=== PATIENT | male | born 1935 | race Caucasian/White ===

== ENCOUNTER 2017-06-23 10:08 | Outpatient (CLI) | payer MEDICARE ==
[2017-06-23] MEDS ORDERED: Gadobenate Dimeglumine 529 MG/1 ML (20ML VIAL) ONE (10:15)
== END 2017-06-23 10:09 | disposition home or self-care (01) ==
LOC: BICMRI 10:08
PROVIDERS: ATTEND Neurological Surgery
DX: M54.16 Radiculopathy, lumbar region (principal); M48.061 Spinal stenosis, lumbar region without neurogenic claudication; M99.83 Other biomechanical lesions of lumbar region; Z98.1 Arthrodesis status
CPT/HCPCS: 72158; A9579

== ENCOUNTER 2018-05-12 01:13 | Inpatient (IN) | payer MEDICARE ==
[2018-05-12 02:19] LABS: Band 2 % (5-11); Hemoglobin 13.9 g/dL (14.0-18.0); Lymphocytes 4 % (21-51); MDiff Complete? YES; Mean Corpuscular HGB CONC 32.9 g/dL (32.0-36.0); Mean Corpuscular Volume 91.3 fL (78.0-98.0); Mean Platelet Volume 8.2 fL (7.4-10.4); Monocytes 10 % (0-10); Neutrophil 84 % (42-75); Platelet Count 182 thou/uL (130-400); Platelet Morphology Comment Appears Adequate; RBC Distribution Width 12.9 % (11.5-14.5); Red Blood Cell (RBC) Count 4.64 mill/uL (4.70-6.10); White Blood Cell (WBC) Count 20.5 thou/uL (4.8-10.8)
[2018-05-12 02:25] LABS: ALT (SGPT) 20 U/L (8-55); AST (SGOT) 17 U/L (5-34); Alkaline Phosphatase 58 U/L (40-150); Anion Gap 18 mmol/L (10-20); BUN (Urea Nitrogen) 20 mg/dL (8.4-25.7); Bilirubin, Total 1.3 mg/dL (0.2-1.2); Calc. Creatinine Clearance 0 mL/min (70-130); Calcium 9.4 mg/dL (7.8-10.44); Carbon Dioxide 22 mmol/L (23-31); Chloride 98 mmol/L (98-107); Estimated GFR-MDRD 68; Globulin 2.7 g/dL (2.4-3.5); Glucose 225 mg/dL (83-110); Protein, Total 6.7 g/dL (5.8-8.1); Sodium 134 mmol/L (136-145)
[2018-05-12] MEDS ORDERED: Fentanyl 100 MCG/2 ML VIAL ONE ×2 (02:32→09:42)
[2018-05-12] MEDS ORDERED: Piperacillin/Tazobactam 3.375 GM VIAL ONE (02:50)
[2018-05-12] MEDS ORDERED: Adacel (T-DAP) 0.5 ML SYRINGE ONE (03:06)
[2018-05-12] MEDS ORDERED: Dextrose 50% Abboject 50 ML SYRINGE SLOW IVP PRN (04:03)
[2018-05-12] MEDS ORDERED: Morphine 4 MG/ML VIAL SLOW IVP PRN ×2 (04:03)
[2018-05-12] MEDS ORDERED: Ondansetron PF 4 MG/2 ML Vial IVP PRN (04:03)
[2018-05-12] MEDS ORDERED: Dextrose 5% in Water 1,000 ML IV PRN (04:03)
[2018-05-12] MEDS: Sodium Chloride 0.9% 1,000 ML IV SCH ×2 (05:03→13:22)
[2018-05-12] MEDS: Ketorolac Tromethamine 30 MG/ML VIAL IVP SCH ×4 (05:04→17:40)
[2018-05-12] MEDS: Acetaminophen 1,000 MG in Premix Bag 1 BAG IVPB SCH ×5 (05:04→23:44)
[2018-05-12 05:20] VITALS: BMI 32.5
--- NOTE | 2018-05-12 05:48 | HP ---
ATTENDING TRAUMA SURGEON: Jaquan Masters MD HISTORY OF PRESENT ILLNESS: This is an 83-year-old gentleman, who has had recurrent falls, first fall was May 03. The patient had stepped off a curb and landed face first injuring his nose and broken teeth. The patient also had a fall in February 2018 and was not evaluated, but has had some neck pain since. The patient states he tripped and fell at approximately 10:30 last night landing on his right hip with no loss of consciousness. It was reported as a witnessed fall. The patient uses a walker at home and was using his walker. The patient recently diagnosed with possible strep and/or possible staph infection from the patient's wound to his nose. The patient was placed on antibiotics Tuesday for infection. The patient has had nausea and vomiting for the last 2 days since placed on antibiotics. The patient denies having chest pain, palpitations, or dizziness before the fall. The patient has been n.p.o. since 8 p.m. The patient ate crackers. The patient was also seen by his primary care physician 2 days ago as his face was swollen and red. States that it is improving. The patient with last bowel movement 5 days ago and states that his abdomen has been distended, but seems to be a little better today. Said that it was hard yesterday and distended. The patient does report passing gas. PAST MEDICAL HISTORY: Coronary artery disease, heart murmur, diabetes, hyperlipidemia, chronic back and joint pain, cardiac stent placement. PAST SURGICAL HISTORY: Back surgery and stent x1 to heart. ALLERGIES: NO KNOWN DRUG ALLERGIES. CURRENT MEDICATIONS: 1. Metformin 1000 mg twice a day. 2. Flomax 0.4 mg once a day. 3. Pravastatin 40 mg daily. 4. Finasteride 5 mg once a day. 5. Amlodipine 5 mg twice a day. 6. Metoprolol 25 mg twice a day. 7. Gentamicin ointment 1% topical twice a day. 8. Novolin 70/30, 40 units 2 times a day. PHYSICAL EXAMINATION: VITAL SIGNS: Temperature 98.2, SpO2 of 92% on 2 L, pulse 87, blood pressure 154 /72. CONSTITUTIONAL: The patient appears in moderate amount of pain. The patient is oriented to person and event. HEENT: Head is atraumatic and normocephalic. The patient with healing abrasion to the bridge of nose. No drainage noted. NECK: Trachea is midline. No JVD present. Normal range of motion of neck. RESPIRATORY: Mild rhonchi noted. Equal chest expansion, no respiratory distress. CARDIOVASCULAR: Regular rate and rhythm. A 3/6 systolic heart murmur. ABDOMEN: Soft, slightly distended, and has diffuse tenderness. Active bowel sounds. No peritoneal signs. EXTREMITIES: The patient moves all extremities. The patient with right external rotation. Positive distal pulses. Pedal pulse to right lower extremity is weaker than left. NEUROLOGICAL: The patient is oriented to person and place. No focal deficits. LABORATORY DATA: WBC 20.5, RBC 4.64, hemoglobin 13.9, hematocrit 42.2, platelets 182, neutrophils 84. Sodium 134, CO2 of 22, anion gap 18, BUN 20, creatinine 1.04, estimated GFR 68, glucose 222, calcium 9.4, total bilirubin 1.3, AST 17, ALT 20, alkaline phos 58. Troponin 0.018. BNP 142.6. Repeat troponin 0.021. TSH 2.5272. UA pending DIAGNOSTICS: Brain CT unremarkable, official read is pending. Femur x-ray, femur fracture. Official reads pending. IMPRESSION: 1. Ground-level fall. 2. Right femur fracture. 3. Leukocytosis. PLAN: We will admit the patient to surgical ortho floor. Place the patient n.p.o. pending surgery sometime today. We will place the patient on maintenance IV fluids. Empiric antibiotics for leukocytosis. Pending cultures. UA pending. This patient will be discussed with the attending trauma surgeon. Job ID: [id number] MTDD
[2018-05-12] MEDS: Piperacillin/Tazobactam 3.375 GM in Sodium Chloride 0.9% 100 ML IVPB SCH ×4 (06:04→23:47)
[2018-05-12] MEDS: Insulin Regular 300 UNITS/3 ML VIAL SC PRN (06:41)
--- NOTE | 2018-05-12 07:28 | CT ---
CT OF THE BRAIN WITHOUT CONTRAST: Date: 05/12/18 INDICATION: History of fall with concern for head injury. COMPARISON: None. FINDINGS: There is moderate generalized cerebral and cerebellar atrophy. There is mild chronic small vessel whi te matter ischemic change. The septum pellucidum and third ventricle are midline. Skull and extracran ial soft tissues are within normal limits. IMPRESSION: 1. No acute intracranial abnormality. 2. Moderate cerebral and cerebellar atrophy. 3. Mild chronic small vessel white matter ischemic change. POS: [facility]
--- NOTE | 2018-05-12 07:34 | CT ---
CT CERVICAL SPINE WITHOUT CONTRAST: Date: 05/12/18 INDICATION: Fall with concern for neck injury. COMPARISON: None. FINDINGS: No acute fracture or subluxation is evident. There is advanced multilevel disc degenerative disease and prominent multilevel disc osteophyte compl exes. Most prominent levels include C3-4, C5-6, and C6-7 where there is presence of some osseous cent ral canal narrowing. Craniocervical junction appears within normal limits. There is mild periarticular soft tissue calcification around the axial spine. Prevertebral soft tissu es are normal appearing. IMPRESSION: 1. No acute fracture or subluxation is evident. 2. Severe multilevel spondylosis of cervical spine with multilevel prominent disc osteophyte complex es causing some osseous central canal narrowing. Nonemergent follow-up MRI of cervical spine may be h elpful. POS: [facility]
[2018-05-12] MEDS ORDERED: CEFAZOLIN 2 GM in Premix Bag 1 BAG IVPB SCH (08:00)
[2018-05-12] MEDS ORDERED: CEFAZOLIN/Water 2 GM/20 ML SYRINGE SLOW IVP SCH ×2 (08:00→11:15)
[2018-05-12] MEDS ORDERED: Vancomycin HCl 1.5 GM in Sodium Chloride 0.9% 250 ML 300 ML IVPB SCH (08:00)
--- NOTE | 2018-05-12 08:16 | CON ---
DATE OF CONSULTATION: HISTORY OF PRESENT ILLNESS: We were asked by Emergency Room Trauma to see the patient. The patient had a ground level fall last night. Family and are at the bedside. The patient is little somnolent, but arouses and answer some simple questions. Apparently, he fell a week ago, landed on his face. Few days later, he had a bunch of facial swelling and edema was seen by his PCP, put on some antibiotics because he did have some white discharge from his eyes. Antibiotics made him quite ill with nausea, vomiting, and then last night, he had a ground level fall. As for his face and discharge, and family states this is getting better. He had some back surgery a few years ago by Dr. Gonzalez and many years ago. The patient states over the past year or so, his gait has been more of a quick shuffling type of gait. He has been using a walker for stability and a cane. Subsequently in the last 3 to 4 months, he has had 3 falls including this one. states there was no loss of consciousness with any of these falls. PAST MEDICAL HISTORY: CAD, murmur, diabetes, hyperlipidemia, back pain, and arthritic pain. PAST SURGICAL HISTORY: Back surgery x2, cardiac stent. ALLERGIES: NONE. MEDICATIONS: 1. Metformin. 2. Tamsulosin. 3. Pravastatin. 4. Finasteride. 5. Amlodipine. 6. Metoprolol. 7. Gentamicin. 8. Novolin. FAMILY HISTORY: Noncontributory to this event. REVIEW OF SYSTEMS: The patient denies chest pain. No shortness of breath. I move him around for the physical exam for obviously some right hip pain, but little somnolent, otherwise I can arouse him to answer some simple questions. His review of systems is negative. PHYSICAL EXAMINATION: GENERAL: Well-nourished, well-developed male, resting in bed, again a little somnolent, but will arouse and answer some questions. Most of the history is garnered from the family, who is at the bedside. HEENT: He does have some bruising and a bit of swelling to the face. Otherwise, face is symmetric. His smile is also symmetric. NECK: Supple. Trachea midline. LUNGS: Respiratory, no distress. EXTREMITIES: Upper extremities; he has some bruises to his forearms, but otherwise are equal size, shape, symmetry, normal bulk and tone. Lower extremities; right leg is shortened and outward rotated. He has a little bit of redness to the right hip area, but not bad. He has equal pulses sensations of bilateral lower extremities. LABORATORY DATA: CBC: WBCs 20.5, hemoglobin 13.9, hematocrit 42.4, and platelets 182. Chemistries: Sodium is a little low at 134, glucose 255. IMAGING STUDIES: The patient has an obvious right-sided hip fracture. ASSESSMENT: Right hip fracture. PLAN: The patient is being managed by Trauma. We will see if he is able to go to surgery. I did discuss surgery, risks, and benefits with the family and answered their questions. They are amenable to go forth with surgery as long as he is medically cleared. We will keep him n.p.o. Lab work looked okay and is waiting for trauma's authorization to go. We will get him posted. Plan for surgery will be an intramedullary screw stabilization device and I have explained this to the family. They also know he will probably need some case management after the fact for recovery purposes. Questions have been answered. Job ID: [id number]
--- NOTE | 2018-05-12 08:38 | RAD ---
SINGLE VIEW OF THE CHEST: COMPARISON: 12/19/2017. HISTORY: Preoperative radiograph. FINDINGS: Single view of the chest shows a normal sized cardiomediastinal silhouette. There is no evidence of c onsolidation, mass, or pleural effusion. Degenerative changes are seen in the spine. IMPRESSION: No evidence of acute cardiopulmonary disease. POS: [facility]
--- NOTE | 2018-05-12 08:48 | RAD ---
TWO VIEWS RIGHT FEMUR: DATE: 05/12/2018. PROVIDED CLINICAL HISTORY: Fracture. FINDINGS: There is an obliquely oriented subtrochanteric right proximal femoral fracture with posterior displac ement of the distal fracture fragment by about shafts width. No additional fracture is evident. Right hip joint space appears preserved. Vascular calcifications are seen. IMPRESSION: Displaced subtrochanteric right proximal femoral fracture. POS: [facility]
[2018-05-12 08:50] LABS: CKMB 4.8 ng/mL (0-6.6)
--- NOTE | 2018-05-12 08:50 | RAD ---
TWO VIEWS RIGHT KNEE: Comparison: None. History: Multiple falls at home with right femur and knee pain. FINDINGS: Two views of the right knee shows no evidence of fracture or dislocation. Mild to moderate tricompart mental osteophyte formation is seen consistent with osteoarthritis. IMPRESSION: Moderate right knee osteoarthritis without acute osseous abnormality. POS: [facility]
[2018-05-12] MEDS ORDERED: Vancomycin HCl 1 GM in Premix Bag 1 BAG IVPB SCH (09:00)
[2018-05-12] MEDS: Famotidine/PF 20 mg/2ml Vial SLOW IVP SCH ×2 (09:03→20:50)
--- NOTE | 2018-05-12 09:08 | RAD ---
TWO VIEWS RIGHT HIP: DATE: 05/12/2018. PROVIDED CLINICAL HISTORY: Hip fracture. FINDINGS: There is a displaced subtrochanteric fracture of the right proximal femur with posterior displacement of the distal fragment. Alignment at the right hip joint appears preserved. There is a displaced subtrochanteric fracture of the right proximal femur with posterior displacement of the distal fragment. Alignment at the right hip joint appears preserved. Alignment at the right hip joint appears preserved. IMPRESSION: Displaced subtrochanteric right proximal femoral fracture. POS: [facility]
[2018-05-12 09:46] LABS: ALT (SGPT) 23 U/L (8-55); AST (SGOT) 23 U/L (5-34); Albumin 3.7 g/dL (3.4-4.8); Alkaline Phosphatase 54 U/L (40-150); Bilirubin, Direct 0.7 mg/dL (0.1-0.3); Bilirubin, Total 1.4 mg/dL (0.2-1.2); Protein, Total 6.3 g/dL (5.8-8.1)
--- NOTE | 2018-05-12 11:10 | ULT ---
RIGHT UPPER QUADRANT ULTRASOUND: HISTORY: Right upper quadrant pain. FINDINGS: Real-time imaging of the right upper quadrant demonstrates sludge within the gallbladder. No definit e stones. The gallbladder wall is in the 2-3 mm range. The common duct is in the 6 mm range. The l iver parenchyma is of increased echogenicity. The pancreas is totally obscured. The right kidney is not obstructed. IMPRESSION: 1. Gallbladder sludge. No definite stones. The common duct is upper limits of normal. 2. Fatty change of the liver. POS: [facility]
[2018-05-12 12:12] LABS: Actual Bicarbonate (HCO3a) 25.1 mEq/L (22-28); Base Excess (BEa) -2.7 mEq/L (-2.0 to +3.0); CO2 Tension 57.2 mmHg (35.0-45.0); Calcium, Ionized 1.15 mmol/L (1.12-1.30); Carboxyhemoglobin (COHb) 1.7 gm% (0.0-3.0); Hemoglobin (Hb) 13.2 g/dL (14.0-18.0); O2 Tension (PaO2) 62.4 mmHg (> 60.0); Potassium - ABG Lab 3.63 mmol/L (3.70-5.30); pH, Arterial 7.26 (7.35-7.45)
--- NOTE | 2018-05-12 12:58 | RAD ---
TWO VIEWS OF THE RIGHT HIP: COMPARISON: 05/12/2018 at 2:00 a.m. HISTORY: Right hip fracture status post ORIF. FINDINGS/IMPRESSION: Multiple limited intraoperative fluoroscopic views of the right hip were submitted for interpretation . An intramedullary arina has been placed in the interval. The hardware spans a fracture of the proxi mal diaphysis of the femur. No perihardware lucency is present. POS: [facility]
[2018-05-12 13:21] LABS: Actual Bicarbonate (HCO3a) 24.2 mEq/L (22-28); Base Excess (BEa) -2.3 mEq/L (-2.0 to +3.0); CO2 Tension 48.4 mmHg (35.0-45.0); Calcium, Ionized 1.15 mmol/L (1.12-1.30); Carboxyhemoglobin (COHb) 1.8 gm% (0.0-3.0); Hemoglobin (Hb) 13.1 g/dL (14.0-18.0); O2 Tension (PaO2) 62.2 mmHg (> 60.0); Potassium - ABG Lab 3.99 mmol/L (3.70-5.30); pH, Arterial 7.32 (7.35-7.45)
--- NOTE | 2018-05-12 13:44 | RAD ---
AP VIEW CHEST: HISTORY: Trauma. Postoperative radiograph. FINDINGS: AP view chest was obtained on 05/12/2018. Comparison is made to a previous exam from early in the day on 05/12/2018. EKG leads seen over the chest. Calcification of the aorta is seen. No evidence of acute intrathorac ic abnormality is seen. Cardiomegaly noted. Old healed right-sided rib fracture is seen. IMPRESSION: 1. Cardiomegaly and pulmonary vascular congestion. 2. Old healed right-sided rib fractures. POS: [facility]
[2018-05-12] MEDS ORDERED: ePHEDrine 50 MG/ML VIAL ONE (13:53)
[2018-05-12] MEDS ORDERED: Lidocaine 1% PF 5 ML VIAL ONE (13:53)
[2018-05-12] MEDS ORDERED: Glycopyrrolate 0.2 MG/ML 5 ML SYRINGE ONE (13:53)
[2018-05-12] MEDS ORDERED: Rocuronium Bromide 10 MG/ML (10ML VIAL) ONE (13:53)
[2018-05-12] MEDS ORDERED: PROPOFOL 200 MG/20 ML VIAL ONE (13:53)
[2018-05-12] MEDS ORDERED: Ondansetron PF 4 MG/2 ML Vial ONE (13:53)
--- NOTE | 2018-05-12 16:09 | OP ---
DATE OF PROCEDURE: 05/12/2018 OPERATION PERFORMED: Right femur intramedullary nail. PREOPERATIVE DIAGNOSIS: Right subtrochanteric femur fracture. POSTOPERATIVE DIAGNOSIS: Right subtrochanteric femur fracture. COMPLICATIONS: None. ESTIMATED BLOOD LOSS: 150 mL. HAND TRIMMER: Jacquelyn Sibley PA-C. IMPLANTS: Synthes trochanteric intramedullary nail with Crosslock screws and helical blade. INDICATIONS: Mr. Islas is an 83-year-old male, who has fallen. He fractured the right femur. He was indicated for intramedullary nail fixation to restore anatomic alignment and promote healing. Risks have been reviewed in detail. He elected to proceed with the operation. DESCRIPTION OF OPERATION: Mr. Islas was identified in the preoperative holding area. His correct extremity was marked. He was carried to the operating room. He was positioned supine. General anesthesia was induced. A multidisciplinary time-out was performed. The right lower extremity was prepped and draped in sterile fashion. We began the procedure with incision over the greater trochanter. We dissected down through the subcutaneous tissues to the tip of the trochanter. A guidewire was inserted. At this point, we overdrilled the guidewire. We then placed a ball-tipped guidewire distally to the knee. We checked this on intraoperative x-ray. We measured appropriate length for nail. We then reamed up to a size 12 reamer. Next, we impacted our intramedullary nail. We watched this again with fluoroscopy. Finally, we placed a helical blade in the center position of the femoral head. This was checked on orthogonal planes. We then put this into a dynamic position. Finally, we placed a distal Crosslock screw using perfect absentee-shawnee technique. At this point, we thoroughly irrigated with copious lavage. Wounds were closed appropriately in layers. The patient was taken to the recovery room. Job ID: [id number]
[2018-05-12] MEDS: CEFAZOLIN 2 GM in Premix Bag 1 BAG IVPB SCH (16:22)
[2018-05-12] MEDS: Ibuprofen 600 MG TAB PO SCH (20:50)
[2018-05-12] MEDS: Senokot S 8.6-50 MG TAB PO SCH (20:50)
--- NOTE | 2018-05-12 21:44 | PRG ---
DATE OF SERVICE: 05/12/2018 SUBJECTIVE: I saw Mr. Islas at 8:30 a.m. this morning. This was prior to his trip to the operating room. The patient was admitted following a ground level fall with a right hip fracture. He was also noted to have elevated white blood cell count. The patient was also complaining of abdominal distention and frequent flatulence over the last several days. He denies any nausea, vomiting, fever, or chills. I did review the history and physical as recorded by the trauma nurse practitioner, Ms. Rachel Lopez and I agree with her findings and plan. Additionally, I obtained an ultrasound of the abdomen, which was unremarkable for any gallstones. In fact, the gallbladder ultrasound reveals minimum pericholecystic fluid with no gallbladder wall thickening. The common bile duct was normal in diameter for the patient's age. OBJECTIVE: HEART: At the time of my evaluation, his heart reveals regular rate and rhythm. No murmurs or gallops auscultated. LUNGS: Clear to auscultation bilaterally. Breathing, regular and nonlabored. ABDOMEN: Soft and moderately distended, but nontender to palpation. Liver and spleen are nonpalpable below costal margin. NEUROLOGIC: Reveals no focal deficits present. EXTREMITIES: Reveal 2 +radial and pedal pulses bilaterally. No ankle edema is present. LABORATORY FINDINGS: Included CBC earlier with 20,500 white blood cells, hemoglobin and hematocrit 13.9 and 42.4 respectively. Platelet count is 182,000. Metabolic profile; sodium 134, potassium is 4.0, chloride is 98, bicarb 22, BUN 20, creatinine is 1.04, glucose is 225. BNP was noted at 110. Total bilirubin was 1.3. AST and ALT were normal at 17 and 20 respectively. The patient was certainly hemodynamically stable and was cleared to proceed with surgical intervention. I re-evaluated the patient postoperatively. At this time, he was requiring noninvasive mechanical ventilator support in the postanesthesia care unit. He was awake and alert at that time, reported adequate pain control. I therefore placed him for observation in the intermediate care unit. A few hours after surgery, the patient was awake and alert, off BiPAP, on 2 L by nasal cannula oxygen. Oxygen saturation was noted at 98%. The patient reported adequate pain control. He denied any nausea, vomiting, chest pain, abdominal pain, or dyspnea. I am therefore initiating clear liquid diet tonight. If tolerated, we will advance diet in the morning. There is no further indication for workup of any biliary disease at this time. We will initiate physical and occupational therapy as the patient tolerates especially when he gets transferred to general surgical floor in the morning. Job ID: [id number] MTDD
[2018-05-12 23:22] LABS: Bilirubin Negative (Negative); Blood, Urine Negative (Negative); Clarity CLEAR (Clear); Glucose, Urine (Dipstick) Negative (Negative); Leukocyte Negative (Negative); Nitrite Negative (Negative); Protein, Urine (Dipstick) 30 mg/dL (Neg-Trace); Specific Gravity, Urine 1.026 (1.002-1.036); Urobilinogen 0.2 mg/dL (0.2-1.0); pH, Urine 5.5 (5.0-9.0)
[2018-05-12 23:25] LABS: Bacteria/HPF None Seen HPF (None Seen); Hyaline Casts/LPF 0-3 HYALINE CAST LPF (0-3 Hyaline); Pathc Cast-AUWi Flag 0.58 (0-2.49); RBC/HPF 0-3 HPF (0-3); Squamous Epithelial 0-3 HPF (0-3); WBC/HPF 0-3 HPF (0-3)
[2018-05-12 23:26] LABS: Urine Culture Reflex No No
[2018-05-13] MEDS: CEFAZOLIN 2 GM in Premix Bag 1 BAG IVPB SCH (00:30)
[2018-05-13 01:24] LABS: Actual Bicarbonate (HCO3a) 24.4 mEq/L (22-28); Base Excess (BEa) -1.4 mEq/L (-2.0 to +3.0); CO2 Tension 45.1 mmHg (35.0-45.0); Calcium, Ionized 1.08 mmol/L (1.12-1.30); Carboxyhemoglobin (COHb) 1.8 gm% (0.0-3.0); Hemoglobin (Hb) 12.2 g/dL (14.0-18.0); Potassium - ABG Lab 3.87 mmol/L (3.70-5.30); pH, Arterial 7.35 (7.35-7.45)
[2018-05-13 01:34] LABS: #Lymphocytes 1.3 thou/uL (1.20-3.40); #Monocytes 1.5 thou/uL (0.11-0.59); #Neutrophils 12.9 thou/uL (1.40-6.50); %Basophils 0.1 % (0.0-1.0); %Eosinophils 0.1 % (0.0-10.0); %Lymphocytes 8.1 % (21.0-51.0); %Monocytes 9.5 % (0.0-10.0); %Neutrophils 82.2 % (42.0-75.0); Hemoglobin 11.5 g/dL (14.0-18.0); Mean Corpuscular HGB CONC 32.7 g/dL (32.0-36.0); Mean Corpuscular Hemoglobin 30.2 pg (27.0-31.0); Mean Corpuscular Volume 92.3 fL (78.0-98.0); Mean Platelet Volume 8.2 fL (7.4-10.4); Platelet Count 142 thou/uL (130-400); RBC Distribution Width 12.8 % (11.5-14.5); Red Blood Cell (RBC) Count 3.81 mill/uL (4.70-6.10); White Blood Cell (WBC) Count 15.7 thou/uL (4.8-10.8)
[2018-05-13 01:50] LABS: ALV-art Gradient 115.385 (0-20); O2 Tension (PaO2) 56.4 mmHg (> 60.0); Puncture Site LRA
[2018-05-13 02:05] LABS: ALT (SGPT) 37 U/L (8-55); AST (SGOT) 31 U/L (5-34); Albumin 3.3 g/dL (3.4-4.8); Alkaline Phosphatase 51 U/L (40-150); Anion Gap 16 mmol/L (10-20); BUN (Urea Nitrogen) 29 mg/dL (8.4-25.7); Bilirubin, Total 0.8 mg/dL (0.2-1.2); Calc. Creatinine Clearance 47 mL/min (70-130); Calcium 8.5 mg/dL (7.8-10.44); Carbon Dioxide 22 mmol/L (23-31); Chloride 99 mmol/L (98-107); Estimated GFR-MDRD 37; Globulin 2.6 g/dL (2.4-3.5); Glucose 194 mg/dL (83-110); Magnesium 1.4 mg/dL (1.6-2.6); Phosphorus 3.2 mg/dL (2.3-4.7); Protein, Total 5.9 g/dL (5.8-8.1); Sodium 133 mmol/L (136-145)
[2018-05-13] MEDS ORDERED: Sodium Chloride 0.9% 500 ML IV ONE (02:30)
[2018-05-13] MEDS ORDERED: Magnesium Sulfate 3 GM in Sodium Chloride 0.9% 100 ML IVPB SCH ×2 (02:30→19:30)
[2018-05-13 02:42] LABS: Actual Bicarbonate (HCO3a) 23.7 mEq/L (22-28); Base Excess (BEa) -1.6 mEq/L (-2.0 to +3.0); CO2 Tension 42.3 mmHg (35.0-45.0); Calcium, Ionized 1.09 mmol/L (1.12-1.30); Carboxyhemoglobin (COHb) 1.4 gm% (0.0-3.0); Hemoglobin (Hb) 11.9 g/dL (14.0-18.0); O2 Tension (PaO2) 63.8 mmHg (> 60.0); Potassium - ABG Lab 3.78 mmol/L (3.70-5.30); pH, Arterial 7.37 (7.35-7.45)
[2018-05-13 02:43] LABS: ALV-art Gradient 168.525 (0-20); Puncture Site LRA
[2018-05-13] MEDS: Ibuprofen 600 MG TAB PO SCH ×2 (05:23→15:05)
[2018-05-13] MEDS: Piperacillin/Tazobactam 3.375 GM in Sodium Chloride 0.9% 100 ML IVPB SCH ×4 (05:23→23:15)
[2018-05-13] MEDS: Insulin Regular 300 UNITS/3 ML VIAL SC PRN ×3 (06:26→16:40)
--- NOTE | 2018-05-13 08:10 | RAD ---
SINGLE VIEW OF THE CHEST: COMPARISON: 05/12/2018. HISTORY: Tachypnea. FINDINGS: A single view of the chest shows an enlarged but stable cardiomediastinal silhouette with atheroscler otic calcifications in the aorta. There is no evidence of consolidation, mass, or pleural effusion. IMPRESSION: Stable cardiomegaly. POS: [facility]
[2018-05-13] MEDS ORDERED: Non-Formulary Item 1 EACH (Cholecalciferol (Vitamin D3) [Vitamin D3] 1,000 UNIT) PO SCH (09:00)
[2018-05-13] MEDS: Tamsulosin HCl 0.4 MG CAP PO SCH (09:08)
[2018-05-13] MEDS: Finasteride 5 MG TAB PO SCH (09:08)
[2018-05-13] MEDS: Metoprolol Tartrate 25 MG TAB PO SCH ×2 (09:08→19:59)
[2018-05-13] MEDS: Senokot S 8.6-50 MG TAB PO SCH ×2 (09:09→19:57)
[2018-05-13] MEDS: Polyethylene Glycol 3350 17 GM Packet PO SCH (09:09)
[2018-05-13] MEDS: Ondansetron ODT 4 MG TAB PO PRN ×2 (09:18→16:17)
[2018-05-13] MEDS: Sodium Chloride 0.9% 1,000 ML IV SCH ×2 (09:26→19:56)
[2018-05-13] MEDS: traMADol HCl 50 MG TAB PO PRN ×2 (12:01→21:48)
--- NOTE | 2018-05-13 15:38 | PRG ---
DATE OF SERVICE: 05/13/2018 SUBJECTIVE: Mr. Islas is an 83-year-old man, who is postoperative day #1, status post right femur intramedullary nail. The patient was placed on BiPAP yesterday due to hypoxemic respiratory insufficiency. That did resolve. However, early this morning, the patient was confused and was found to be hypoxic with oxygen saturation in the high 70s to mid 80s. He was re-placed on BiPAP to optimize his oxygenation and mental status has since improved. His urinary output is adequate. He moves all extremities and does not have any focal deficits present. OBJECTIVE: VITAL SIGNS: This morning include blood pressure 129/78, pulse is 103 and irregular, respiratory rate is 20, and temperature is 99.2 degrees Fahrenheit, which is the maximum temperature in the last 24 hours. Current oxygen saturation is 98% on 3 L by nasal cannula oxygen. HEENT: Examination reveals pupils are equal, round, and reactive to light and accommodation. NECK: He has no jugular venous distention noted. HEART: Reveals irregular rate and irregular rhythm. LUNGS: Reveal scattered rhonchi. Breathing regular, nonlabored. ABDOMEN: Soft, nontender, nondistended. EXTREMITIES: Reveal 2+ radial and pedal pulses bilaterally. No ankle edema is present. NEUROLOGIC: Reveals no focal deficits present. LABORATORY FINDINGS: Today include decrease in white blood cell count at 15,700 in contrast to 20,500 yesterday. Hemoglobin and hematocrit are 11.5 and 35.2 respectively. Platelet count is 142,000. Metabolic profile; sodium 133, potassium 4.0, chloride is 99, bicarb is 22, BUN 29, creatinine is 1.78, glucose is 194, magnesium is 1.4, phosphorus is 3.2. AST and ALT are normal at 31 and 37 respectively. Total bilirubin is also normal at 0.8. Note that BUN and creatinine yesterday were 20 and 1.04 respectively. IMPRESSION: 1. Postoperative day #1, status post right femur intramedullary nail. 2. Acute kidney injury. 3. Acute pulmonary insufficiency. 4. Acute hypomagnesemia. PLAN: 1. Correct abnormal electrolytes. 2. Optimize pulmonary toilet. 3. The patient will be placed on BiPAP at bedtime and monitor for adequate oxygenation. 4. The patient has poor oral intake. Therefore, we will reinstitute IV fluid resuscitation and monitor his renal function as endpoint of resuscitation. Above findings and plan have been discussed with the patient and his family. We will increase activity per Physical and Occupational Therapy in the meantime. He requires another stay in the intermediate care unit and we will consider transfer to general floor tomorrow if the patient remains hemodynamically stable. Job ID: [id number]
[2018-05-13 18:54] LABS: #Lymphocytes 0.9 thou/uL (1.20-3.40); #Neutrophils 9.7 thou/uL (1.40-6.50); %Basophils 0.3 % (0.0-1.0); %Eosinophils 0.1 % (0.0-10.0); %Lymphocytes 7.7 % (21.0-51.0); %Monocytes 8.8 % (0.0-10.0); %Neutrophils 83.1 % (42.0-75.0); Hemoglobin 10.6 g/dL (14.0-18.0); Mean Corpuscular HGB CONC 32.9 g/dL (32.0-36.0); Mean Corpuscular Hemoglobin 30.5 pg (27.0-31.0); Mean Corpuscular Volume 92.7 fL (78.0-98.0); Mean Platelet Volume 8.1 fL (7.4-10.4); Platelet Count 143 thou/uL (130-400); RBC Distribution Width 12.7 % (11.5-14.5); Red Blood Cell (RBC) Count 3.47 mill/uL (4.70-6.10); White Blood Cell (WBC) Count 11.7 thou/uL (4.8-10.8)
[2018-05-13 19:13] LABS: Lactic Acid 1.4 mmol/L (0.5-2.2)
[2018-05-13 19:15] LABS: Anion Gap 12 mmol/L (10-20); BUN (Urea Nitrogen) 30 mg/dL (8.4-25.7); Calc. Creatinine Clearance 55 mL/min (70-130); Calcium 8.7 mg/dL (7.8-10.44); Carbon Dioxide 24 mmol/L (23-31); Chloride 101 mmol/L (98-107); Estimated GFR-MDRD 44; Glucose 225 mg/dL (83-110); Magnesium 1.9 mg/dL (1.6-2.6); Phosphorus 2.8 mg/dL (2.3-4.7); Sodium 133 mmol/L (136-145)
[2018-05-13] MEDS ORDERED: Potassium Phosphate 30 MMOL in Sodium Chloride 0.9% 500 ML IVPB SCH (19:30)
[2018-05-13] MEDS: Acetaminophen 500 MG TAB PO SCH (19:57)
[2018-05-13] MEDS: Heparin 5,000 UNITS/ML VIAL SC SCH (19:58)
[2018-05-13] MEDS: Famotidine/PF 20 mg/2ml Vial SLOW IVP SCH (19:58)
[2018-05-13] MEDS: Atorvastatin Calcium 10 MG TAB PO SCH (19:59)
[2018-05-13] MEDS ORDERED: Pravastatin Sodium 40 MG TAB PO SCH (21:00)
[2018-05-14] MEDS: Acetaminophen 500 MG TAB PO SCH ×3 (02:51→12:30)
[2018-05-14 05:14] LABS: #Lymphocytes 0.9 thou/uL (1.20-3.40); #Monocytes 0.9 thou/uL (0.11-0.59); #Neutrophils 7.8 thou/uL (1.40-6.50); %Basophils 0.5 % (0.0-1.0); %Eosinophils 0.1 % (0.0-10.0); %Monocytes 9.4 % (0.0-10.0); %Neutrophils 81.1 % (42.0-75.0); Hemoglobin 10.1 g/dL (14.0-18.0); Mean Corpuscular HGB CONC 32.8 g/dL (32.0-36.0); Mean Corpuscular Hemoglobin 30.5 pg (27.0-31.0); Mean Platelet Volume 8.2 fL (7.4-10.4); Platelet Count 149 thou/uL (130-400); RBC Distribution Width 12.6 % (11.5-14.5); White Blood Cell (WBC) Count 9.7 thou/uL (4.8-10.8)
[2018-05-14] MEDS: Piperacillin/Tazobactam 3.375 GM in Sodium Chloride 0.9% 100 ML IVPB SCH ×3 (05:25→18:31)
[2018-05-14] MEDS: Sodium Chloride 0.9% 1,000 ML IV SCH ×2 (05:26→14:21)
[2018-05-14 05:33] LABS: Anion Gap 14 mmol/L (10-20); BUN (Urea Nitrogen) 29 mg/dL (8.4-25.7); Calc. Creatinine Clearance 71 mL/min (70-130); Calcium 8.4 mg/dL (7.8-10.44); Carbon Dioxide 22 mmol/L (23-31); Chloride 103 mmol/L (98-107); Estimated GFR-MDRD 59; Glucose 202 mg/dL (83-110); Magnesium 2.2 mg/dL (1.6-2.6); Potassium 4.2 mmol/L (3.5-5.1); Sodium 135 mmol/L (136-145)
[2018-05-14] MEDS: Insulin Regular 300 UNITS/3 ML VIAL SC PRN ×2 (06:32→21:51)
--- NOTE | 2018-05-14 09:04 | RAD ---
KUB: COMPARISON: None. HISTORY: Abdominal distention. FINDINGS: Anterior view of the abdomen shows a nonspecific, nonobstructed bowel gas pattern. There is gaseous distention of the stomach. Air is seen throughout the colon to the level of the rectum. Surgical st aples are seen along the right abdominal wall. Hardware is seen in the right femur. IMPRESSION: Nonobstructive bowel gas pattern with gaseous distention of the stomach. POS: [facility]
[2018-05-14] MEDS: Senokot S 8.6-50 MG TAB PO SCH (09:28)
[2018-05-14] MEDS: Finasteride 5 MG TAB PO SCH (09:28)
[2018-05-14] MEDS: Metoprolol Tartrate 25 MG TAB PO SCH (09:29)
[2018-05-14] MEDS: Tamsulosin HCl 0.4 MG CAP PO SCH (09:29)
[2018-05-14] MEDS: Heparin 5,000 UNITS/ML VIAL SC SCH ×2 (09:29→14:21)
[2018-05-14] MEDS: Polyethylene Glycol 3350 17 GM Packet PO SCH (09:29)
[2018-05-14] MEDS ORDERED: Sodium Phosphate 10 MMOL in Sodium Chloride 0.9% 250 ML 250 ML IVPB SCH (12:45)
[2018-05-14] MEDS: traMADol HCl 50 MG TAB PO PRN (16:03)
--- NOTE | 2018-05-14 20:50 | PRG ---
DATE OF SERVICE: 05/14/2018 SUBJECTIVE: Mr. Islas is an 83-year-old man who is postoperative day #2 status post intramedullary nail, right femur. The patient was placed on BiPAP for hypoxemic respiratory insufficiency. At the time I saw him this morning, patient is awake and alert and more interactive. Family reports the patient slept better last night. Urinary output today is appropriate. He denies any chest pain, dyspnea, or syncope. He complains of pain in right hip only when he moves. OBJECTIVE: VITAL SIGNS: This morning included blood pressure of 137/71, pulse is 99, respiratory rate is 21, temperature is 97.7 degrees Fahrenheit. Maximum temperature in last 24 hours is 99.8 degrees Fahrenheit. Oxygen saturation this morning is 93% on 3 L by nasal cannula oxygen. HEENT: Pupils are equal, round and reactive to light and accommodation. He has no jugular venous distention noted. HEART: Reveals regular rate and rhythm. LUNGS: Clear to auscultation bilaterally. Breathing, regular nonlabored. ABDOMEN: Soft, nontender, nondistended. EXTREMITIES: Reveal 2 +radial and pedal pulses bilaterally. No ankle edema is present. NEUROLOGIC: Reveals no focal deficits present. LABORATORY FINDINGS: Today includes a CBC with 9007 white blood cells, hemoglobin and hematocrit stable at 10.1 and 30.7 respectively. Platelet count 149,000. Metabolic profile; sodium 135, potassium is 4.2, chloride is 103, bicarb is 22, BUN 29, creatinine is 1.18, glucose 202, magnesium 2.2. Phosphorus 3.0. IMPRESSIONS: 1. Postop day #2, status post intramedullary nail, right femur. 2. Resolving acute hypoxemic respiratory insufficiency. 3. Resolving acute metabolic encephalopathy. 4. Stable acute blood loss anemia. 5. Resolved acute kidney injury. PLAN: 1. Increase activity per Physical and Occupational therapy. 2. The patient is hemodynamically stable for transfer to general surgical floor. 3. Anticipate discharge to rehab within the next 24 to 48 hours. Job ID: [id number]
[2018-05-14 22:26] LABS: Actual Bicarbonate (HCO3a) 29.2 mEq/L (22-28); Base Excess (BEa) 2.7 mEq/L (-2.0 to +3.0); CO2 Tension 54.5 mmHg (35.0-45.0); Calcium, Ionized 1.14 mmol/L (1.12-1.30); Carboxyhemoglobin (COHb) 0.8 gm% (0.0-3.0); Hemoglobin (Hb) 10.7 g/dL (14.0-18.0); O2 Tension (PaO2) 73.4 mmHg (> 60.0); Potassium - ABG Lab 4.36 mmol/L (3.70-5.30); pH, Arterial 7.35 (7.35-7.45)
[2018-05-14 22:27] LABS: ALV-art Gradient 143.675 (0-20); Puncture Site RRA
[2018-05-14] MEDS ORDERED: acetaZOLAMIDE Sodium 500 mg Vial IVP SCH (22:30)
--- NOTE | 2018-05-14 22:47 | RAD ---
CHEST ONE VIEW: History: Mental status change. Comparison: 05-22-18 FINDINGS: Lungs are hyperinflated with vascular crowding. Small effusions. Heart size is enlarged. Old right si ded rib fractures. Dense calcifications of the aorta. No pneumothorax. IMPRESSION: New airspace opacities both lower lobes may be sequellae of atelectasis versus aspiration. Follow up recommended. POS: [facility]
[2018-05-14 22:57] LABS: Hemoglobin 9.8 g/dL (14.0-18.0); Hypochromia SLIGHT = 6-15 cells (100X) (0-5/hpf); Lymphocytes 11 % (21-51); MDiff Complete? YES; Mean Corpuscular HGB CONC 32.5 g/dL (32.0-36.0); Mean Corpuscular Hemoglobin 30.1 pg (27.0-31.0); Mean Corpuscular Volume 92.6 fL (78.0-98.0); Mean Platelet Volume 8.7 fL (7.4-10.4); Monocytes 1 % (0-10); Neutrophil 88 % (42-75); Platelet Count 191 thou/uL (130-400); Platelet Morphology Comment Appears Adequate; RBC Distribution Width 12.7 % (11.5-14.5); Red Blood Cell (RBC) Count 3.25 mill/uL (4.70-6.10)
[2018-05-14 22:58] LABS: Lactic Acid 0.8 mmol/L (0.5-2.2)
[2018-05-14 23:00] LABS: Anion Gap 13 mmol/L (10-20); BUN (Urea Nitrogen) 27 mg/dL (8.4-25.7); Calc. Creatinine Clearance 88 mL/min (70-130); Calcium 8.6 mg/dL (7.8-10.44); Carbon Dioxide 24 mmol/L (23-31); Chloride 102 mmol/L (98-107); Estimated GFR-MDRD 76; Glucose 236 mg/dL (83-110); Magnesium 2.3 mg/dL (1.6-2.6); Phosphorus 2.7 mg/dL (2.3-4.7); Potassium 4.6 mmol/L (3.5-5.1); Sodium 134 mmol/L (136-145)
--- NOTE | 2018-05-14 23:49 | CT ---
CT BRAIN WITHOUT CONTRAST: History: Decompensation. Comparison: 05-12-18 FINDINGS: No acute hemorrhage or infarct. No midline shift or mass effect. Ventricular size and extraaxial CSF spaces are unchanged. Moderate atrophy. Mild to moderate microvascular ischemic changes. Calvarium is intact. Paranasal sinuses and mastoids are clear. IMPRESSION: No acute intracranial abnormality. No significant change from two day's prior. POS: [facility]
[2018-05-14 23:52] LABS: CKMB 2.8 ng/mL (0-6.6)
--- NOTE | 2018-05-15 00:06 | PDOC.EVN ---
Event Note - Event Note Event Note: I was called to the bedside by the patients nurse this evening 2/2 decrease in responsiveness. When I arrived to the room the patient was on BiPAP with SpO2 > 92%, HR in low 100s, and SBP in the 150s. He was protecting his airway but would not respond to verbal stimuli or sternal rub. His eyes were open but he would not follow commands. He was last responding normally about 1hr before but was dealing with delirium throughout the day. Bed side glucose was in the 250s. A CXR, ECG, ABG, CBC, BMP, Mg, Phos, lactate, BNP, and troponin were ordered. Dr. Sandoval was notified. A leach was placed and a UA was collected. He had only received 50 mg of tramadol 5 hrs earlier. ECG, CXR, and ABG were not remarkable. Stat CT head was completed to rule out a CVA. CT head was unremarkable. He was transferred to the CCU on BiPAP. A NG tube was placed to decompress the stomach. Pt continued to be hypodermically stable during the entire evaluation with no concern for airway compromise. He did become hypertensive with SBP to 170 at one point but that resolved on its own. A Prolactin level was also sent to the lab to rule out absence seizure. Results are pending. Other differential also includes a fat emboli. Patients family was updated on his condition by Dr. Sandoval and myself. Plan is to follow up on prolactin level and provide supportive care. Chelsy Huggins PA-C Trauma Surgery
[2018-05-15] MEDS: Atorvastatin Calcium 10 MG TAB PO SCH ×2 (00:40→22:29)
[2018-05-15] MEDS: Senokot S 8.6-50 MG TAB PO SCH ×3 (00:40→22:29)
[2018-05-15] MEDS: Acetaminophen 500 MG TAB PO SCH ×5 (00:40→22:29)
[2018-05-15] MEDS: Piperacillin/Tazobactam 3.375 GM in Sodium Chloride 0.9% 100 ML IVPB SCH ×2 (00:50→06:21)
[2018-05-15] MEDS: Sodium Chloride 0.9% 1,000 ML IV SCH ×2 (00:50→11:08)
[2018-05-15] MEDS: Heparin 5,000 UNITS/ML VIAL SC SCH ×4 (00:51→20:38)
[2018-05-15] MEDS: Famotidine/PF 20 mg/2ml Vial SLOW IVP SCH ×2 (00:51→20:38)
[2018-05-15] MEDS: Metoprolol Tartrate 25 MG TAB PO SCH (00:59)
[2018-05-15] MEDS: Insulin Regular 300 UNITS/3 ML VIAL SC PRN ×2 (06:21→11:12)
[2018-05-15] MEDS: Finasteride 5 MG TAB PO SCH (08:08)
[2018-05-15] MEDS: Polyethylene Glycol 3350 17 GM Packet PO SCH (08:09)
[2018-05-15] MEDS: Tamsulosin HCl 0.4 MG CAP PO SCH (08:09)
[2018-05-15] MEDS: Amlodipine 5 MG TAB PO SCH ×2 (08:09→22:29)
[2018-05-15] MEDS ORDERED: acetaZOLAMIDE Sodium 500 mg Vial IVP SCH (09:00)
--- NOTE | 2018-05-15 11:42 | RAD ---
ABDOMEN 1 VIEW: HISTORY: Gastric distention. COMPARISON: Radiograph 05/14/2018. FINDINGS: There is moderate gaseous distention of the stomach, although it has improved from the comparison exa mination. No enteric tube is appreciated. There appears to be some height loss of the right femoral head. There is indwelling femoral nail. Mild levoscoliosis. IMPRESSION: 1. Continued gaseous distention of the stomach, although it is improved from the comparison examinat ion. No indwelling gastric catheter. 2. Possible height loss of the right femoral head. Dedicated right hip radiograph is recommended. POS: [facility]
[2018-05-15] MEDS ORDERED: Ketorolac Tromethamine 15 MG/ML VIAL IVP PRN (13:51)
--- NOTE | 2018-05-15 14:15 | PRG ---
DATE OF SERVICE: 05/15/2018 SUBJECTIVE: Gareth Islas is in the ICU A7. The patient is status post 05/12/2018, Dr. Mehta, right subtrochanteric femur fracture ORIF with Synthes nail. The patient has some decreased mental status, but spontaneously awoke, although slightly confused. He is interactive with his family. OBJECTIVE: VITAL SIGNS: Temperature 98.3 degrees, heart rate 87, blood pressure 158/73. LUNGS: Clear to auscultation. CARDIAC: Regular rate and rhythm. No murmur or gallop. ABDOMEN: Slightly tympanitic. EXTREMITIES: Unremarkable. IMAGING: Abdominal x-rays yesterday prior to placing an NG tube revealed gastric distention. This morning, a followup x-ray was ordered, and the patient initially refused, but has since consented and this was obtained revealing continuous gaseous distention in the stomach, although improved. As stated above, he did have a gastric tube placed initially, but the patient removed it and refused further interventions. Family is at the bedside, encouraged him to be cooperative. LABORATORY DATA: White count 9, hemoglobin 9.8. Sodium 134 yesterday, potassium 4.6 yesterday, BUN and creatinine are 27 and 0.95 yesterday. Basic metabolic profile, not available today. ASSESSMENT AND PLAN: Poor gastric emptying. Continue n.p.o. status. Continue IV fluids. Supportive care. He is confused and he is improved mentally, but not back to baseline. CAT scan of the brain has been obtained and is unremarkable. Continue IV fluid support and await mental status improvement. Increase mobility as able. Job ID: [id number]
[2018-05-15] MEDS: Ketorolac Tromethamine 30 MG/ML VIAL IVP PRN ×2 (14:46→20:37)
--- NOTE | 2018-05-15 16:29 | PQF ---
CARO CHACON RICHARD D MD [id number] SURG A- 3335 [id number] CLINICAL DOCUMENTATION IMPROVEMENT CLARIFICATION FORM: ICD-10 Updated PLEASE DO AN ADDENDUM TO THE PROGRESS NOTE WITH ANY DOCUMENTATION UPDATES OR ADDITIONS AND CARRY THROUGH TO DC SUMMARY. THANK YOU. DATE: 05/15/2018 ATTN: DR. GUTIERREZ Please exercise your independent, professional judgment in responding to the clarification form. Clinical indicators are provided on the bottom of this form for your review Please check appropriate box(s): [ ] Acute Respiratory Failure: [ ] with Hypoxia[ ] with Hypercapnia [ ] Acute On Chronic Respiratory Failure: [ ] with Hypoxia [ ] with Hypercapnia [ ] Acute Respiratory Failure due to: (etiology) [ ] ARDS (Acute Respiratory Distress Syndrome) [ ] Chronic Respiratory Failure only [ ] with Hypoxia [ ] with Hypercapnia [ ] Hypoxia [ ] Other diagnosis [ ] Unable to determine For continuity of documentation, please document condition throughout progress notes and discharge summary. Thank You. CLINICAL INDICATORS - SIGNS / SYMPTOMS / LABS 05/12-H&P-PONZIO: SAT 92% ON 2L. 05/13-OHAJU: WAS PLACED ON BIPAP YEST D/T HYPOXEMIC RESP INSUFFICIENCY; THAT DID RESOLVE. EARLY THIS AM, WAS CONFUSED AND FOUND TO BE HYPOXIC WITH SATS 70-80S. 05/14-OHAJU: RESOLVING ACUTE HYPOXEMIC RESPIRATORY INSUFFICIENCY. 05/13@1445: O2 SAT 89% ON 5L NC. 05/14@1900: O2 SAT 91% ON 4L NC. 05/14@1915: O2 SAT 94% ON 6L NC. 05/14@2141: O2 SAT 98% ON BIPAP. 05/13@0115: PO2 56.4. RISK FACTORS Recent surgery Recent falls TREATMENTS Oxygen Monitoring of oxygenation status Mechanical ventilation / BiPAP Respiratory treatments ABGs CCU Thank you, Tia (This form is maintained as a part of the permanent medical record) 2014 [employer]. All Rights Reserved Tia Rooney RN, CDIS [email or web address] [phone] [facility]
[2018-05-15] MEDS ORDERED: Acetaminophen 650 MG Suppository PR PRN (16:50)
[2018-05-16] MEDS: hydrALAZINE 20 MG/ML VIAL SLOW IVP PRN ×2 (00:08→14:41)
[2018-05-16] MEDS: Metoprolol Tartrate 5 MG/5 ML VIAL IVP PRN (02:40)
[2018-05-16] MEDS: Ketorolac Tromethamine 30 MG/ML VIAL IVP PRN ×2 (03:44→14:41)
[2018-05-16] MEDS: Acetaminophen 500 MG TAB PO SCH ×4 (05:03→20:48)
[2018-05-16] MEDS: Sodium Chloride 0.9% 1,000 ML IV SCH ×2 (05:03→06:44)
[2018-05-16 06:31] LABS: #Eosinphils 0.2 thou/uL (0.0-0.7); #Lymphocytes 1.3 thou/uL (1.20-3.40); #Monocytes 0.9 thou/uL (0.11-0.59); #Neutrophils 5.4 thou/uL (1.40-6.50); %Basophils 0.1 % (0.0-1.0); %Eosinophils 2.7 % (0.0-10.0); %Lymphocytes 16.4 % (21.0-51.0); %Monocytes 11.8 % (0.0-10.0); Hemoglobin 10.2 g/dL (14.0-18.0); Mean Corpuscular HGB CONC 32.6 g/dL (32.0-36.0); Mean Corpuscular Hemoglobin 30.5 pg (27.0-31.0); Mean Corpuscular Volume 93.5 fL (78.0-98.0); Mean Platelet Volume 7.3 fL (7.4-10.4); Platelet Count 191 thou/uL (130-400); RBC Distribution Width 12.7 % (11.5-14.5); Red Blood Cell (RBC) Count 3.33 mill/uL (4.70-6.10); White Blood Cell (WBC) Count 7.9 thou/uL (4.8-10.8)
[2018-05-16] MEDS: Amlodipine 5 MG TAB PO SCH ×2 (06:45→20:48)
[2018-05-16] MEDS ORDERED: Metoprolol Tartrate 25 MG TAB PO SCH (06:45)
[2018-05-16 06:52] LABS: Anion Gap 12 mmol/L (10-20); BUN (Urea Nitrogen) 15 mg/dL (8.4-25.7); Calc. Creatinine Clearance 125 mL/min (70-130); Calcium 8.6 mg/dL (7.8-10.44); Carbon Dioxide 27 mmol/L (23-31); Chloride 104 mmol/L (98-107); Estimated GFR-MDRD Greater than 90; Glucose 152 mg/dL (83-110); Magnesium 1.5 mg/dL (1.6-2.6); Phosphorus 2.2 mg/dL (2.3-4.7); Potassium 3.8 mmol/L (3.5-5.1); Sodium 139 mmol/L (136-145)
[2018-05-16] MEDS: Heparin 5,000 UNITS/ML VIAL SC SCH ×3 (08:49→20:52)
[2018-05-16] MEDS ORDERED: Furosemide 40 MG/4 ML VIAL SLOW IVP SCH (11:15)
[2018-05-16] MEDS: Metoprolol Tartrate 25 MG TAB PO SCH ×2 (12:43→20:51)
[2018-05-16] MEDS: Finasteride 5 MG TAB PO SCH (12:43)
[2018-05-16] MEDS: Polyethylene Glycol 3350 17 GM Packet PO SCH (12:44)
[2018-05-16] MEDS: Tamsulosin HCl 0.4 MG CAP PO SCH (12:44)
[2018-05-16] MEDS: Senokot S 8.6-50 MG TAB PO SCH ×2 (12:44→20:48)
--- NOTE | 2018-05-16 14:34 | PRG ---
DATE OF SERVICE: 05/16/2018 SUBJECTIVE: Mr. Islas is an 83-year-old man who is postoperative day #4 status post intramedullary nail, right femur. The patient is more alert today. He has intermittent episodes of agitation and confusion. He does move all extremities and follows commands. He is requiring intermittent noninvasive mechanical ventilator support to correct for his hypoxemia. OBJECTIVE: VITAL SIGNS: Currently, his blood pressure is 167/91, pulse is 83, respiratory rate is 21, maximum temperature in last 24 hours is 99.1 degrees Fahrenheit. Currently temperature is 97.6 degrees Fahrenheit. Oxygen saturation is 93% on 4 L by nasal cannula oxygen. HEENT: Pupils are equal, round, reactive to light and accommodation. HEART: Reveals regular rate and rhythm. No murmurs or gallops auscultated. LUNGS: Clear to auscultation bilaterally. Breathing regular, nonlabored. ABDOMEN: Soft, moderately distended, but nontender to palpation. EXTREMITIES: Reveal 2+ radial and pedal pulses bilaterally. No ankle edema is present. NEUROLOGIC: Reveals no focal deficits present. DIAGNOSTIC DATA: The patient did have negative head CT scan 2 days ago. LABORATORY FINDINGS: Today include a CBC with 7900 white blood cells, hemoglobin and hematocrit 10.2 and 31.1 respectively. Platelet count is 191,000. Metabolic profile; sodium 139, potassium 3.8, chloride is 104, bicarb is 27, BUN 15, creatinine 0.67, glucose is 152, magnesium is 1.5, phosphorus is 2.2. IMPRESSIONS: 1. Postop day #4 status post right femur intramedullary nail. 2. Resolving acute metabolic encephalopathy, likely secondary to fat embolism syndrome. 3. Resolving acute respiratory insufficiency with hypoxemia. 4. Acute hypomagnesemia. 5. Acute hypokalemia. 6. Acute hypophosphatemia. PLAN: 1. Correct abnormal electrolytes. 2. Increase activity per Physical and Occupational therapy. 3. We will ask Speech and Language Pathology to evaluate the patient for cognition, and swallow. 4. Anticipate transfer to inpatient rehabilitation once insurance authorization has been secured and available bed as is determined. Above findings and plan have been discussed with the patient and his at bedside. They both indicated understanding of information given. I have answered their questions. Job ID: [id number]
[2018-05-16] MEDS: Insulin Regular 300 UNITS/3 ML VIAL SC PRN ×2 (17:03→20:52)
[2018-05-16] MEDS: Famotidine/PF 20 mg/2ml Vial SLOW IVP SCH (20:51)
[2018-05-16] MEDS: Atorvastatin Calcium 10 MG TAB PO SCH (20:51)
[2018-05-17] MEDS: hydrALAZINE 20 MG/ML VIAL SLOW IVP PRN ×3 (01:03→23:17)
[2018-05-17] MEDS: Acetaminophen 500 MG TAB PO SCH ×4 (01:10→20:16)
[2018-05-17] MEDS: traMADol HCl 50 MG TAB PO PRN (03:25)
[2018-05-17] MEDS: Ketorolac Tromethamine 30 MG/ML VIAL IVP PRN (03:29)
[2018-05-17] MEDS: Metoprolol Tartrate 5 MG/5 ML VIAL IVP PRN ×2 (04:14→12:10)
[2018-05-17] MEDS: Insulin Regular 300 UNITS/3 ML VIAL SC PRN ×2 (06:09→16:17)
[2018-05-17] MEDS ORDERED: Magnesium 2 GM/50 ML 3 GM in Premix Bag 1 BAG IVPB SCH ×2 (06:45→09:00)
[2018-05-17] MEDS ORDERED: Magnesium Sulfate 3 GM in Sodium Chloride 0.9% 100 ML IVPB SCH (08:00)
[2018-05-17] MEDS: Senokot S 8.6-50 MG TAB PO SCH ×2 (08:36→20:15)
[2018-05-17] MEDS: Tamsulosin HCl 0.4 MG CAP PO SCH (08:36)
[2018-05-17] MEDS: Amlodipine 5 MG TAB PO SCH ×2 (08:36→20:15)
[2018-05-17] MEDS: Heparin 5,000 UNITS/ML VIAL SC SCH ×4 (08:37→21:16)
[2018-05-17] MEDS: Finasteride 5 MG TAB PO SCH (08:37)
[2018-05-17] MEDS: Metoprolol Tartrate 25 MG TAB PO SCH ×2 (08:38→20:16)
[2018-05-17] MEDS: Polyethylene Glycol 3350 17 GM Packet PO SCH (08:38)
[2018-05-17] MEDS ORDERED: Potassium Phosphate 30 MMOL, Magnesium Sulfate 3 GM in Sodium Chloride 0.9% 250 ML 250 ML IVPB SCH (09:00)
[2018-05-17] MEDS ORDERED: Insulin Glargine 10 UNITS in Pre-Filled Syringe 1 EACH SC SCH (09:00)
[2018-05-17] MEDS ORDERED: Labetalol HCl 100 MG/20 ML VIAL SLOW IVP ONE (09:50)
[2018-05-17 10:54] LABS: Anion Gap 15 mmol/L (10-20); BUN (Urea Nitrogen) 9 mg/dL (8.4-25.7); Calc. Creatinine Clearance 122 mL/min (70-130); Calcium 9.1 mg/dL (7.8-10.44); Carbon Dioxide 25 mmol/L (23-31); Chloride 100 mmol/L (98-107); Estimated GFR-MDRD Greater than 90; Glucose 243 mg/dL (83-110); Magnesium 1.7 mg/dL (1.6-2.6); Phosphorus 2.5 mg/dL (2.3-4.7); Potassium 3.4 mmol/L (3.5-5.1); Sodium 137 mmol/L (136-145)
[2018-05-17] MEDS: Atorvastatin Calcium 10 MG TAB PO SCH (20:16)
[2018-05-17] MEDS: Famotidine 20 MG TAB PO SCH (20:16)
[2018-05-18] MEDS: Ketorolac Tromethamine 30 MG/ML VIAL IVP PRN (00:14)
[2018-05-18] MEDS: Metoprolol Tartrate 5 MG/5 ML VIAL IVP PRN (02:14)
[2018-05-18] MEDS: Acetaminophen 500 MG TAB PO SCH ×4 (03:07→21:17)
[2018-05-18 04:31] LABS: Anion Gap 14 mmol/L (10-20); BUN (Urea Nitrogen) 14 mg/dL (8.4-25.7); Calc. Creatinine Clearance 117 mL/min (70-130); Calcium 9.2 mg/dL (7.8-10.44); Carbon Dioxide 25 mmol/L (23-31); Chloride 102 mmol/L (98-107); Estimated GFR-MDRD Greater than 90; Glucose 262 mg/dL (83-110); Potassium 3.4 mmol/L (3.5-5.1); Sodium 138 mmol/L (136-145)
[2018-05-18] MEDS: traMADol HCl 50 MG TAB PO PRN ×2 (05:56→17:57)
[2018-05-18] MEDS: Insulin Regular 300 UNITS/3 ML VIAL SC PRN ×4 (06:20→21:42)
[2018-05-18] MEDS ORDERED: Insulin Glargine 15 UNITS in Pre-Filled Syringe 1 EACH SC SCH (06:36)
[2018-05-18 07:23] LABS: Magnesium 1.8 mg/dL (1.6-2.6)
[2018-05-18 07:35] LABS: Phosphorus 3.5 mg/dL (2.3-4.7)
[2018-05-18] MEDS ORDERED: metFORMIN 500 MG TAB PO SCH (08:00)
[2018-05-18] MEDS: Tamsulosin HCl 0.4 MG CAP PO SCH (09:12)
[2018-05-18] MEDS: Metoprolol Tartrate 25 MG TAB PO SCH ×2 (09:12→21:17)
[2018-05-18] MEDS: Famotidine 20 MG TAB PO SCH ×2 (09:12→21:29)
[2018-05-18] MEDS: Senokot S 8.6-50 MG TAB PO SCH ×2 (09:12→21:29)
[2018-05-18] MEDS: Polyethylene Glycol 3350 17 GM Packet PO SCH (09:13)
[2018-05-18] MEDS: Heparin 5,000 UNITS/ML VIAL SC SCH ×3 (09:13→21:17)
[2018-05-18] MEDS: Amlodipine 5 MG TAB PO SCH ×2 (09:13→21:17)
[2018-05-18] MEDS: Finasteride 5 MG TAB PO SCH (09:13)
[2018-05-18] MEDS: Milk Of Magnesia 30 ML UDCUP PO SCH ×2 (09:28→09:35)
[2018-05-18] MEDS: Insulin Glargine 15 UNITS in Pre-Filled Syringe 1 EACH SC SCH (09:28)
[2018-05-18] MEDS: Ondansetron ODT 4 MG TAB PO PRN (09:28)
[2018-05-18] MEDS ORDERED: Furosemide 20 MG/2 ML VIAL SLOW IVP SCH (09:45)
--- NOTE | 2018-05-18 11:11 | PQF ---
INESCARO VINCENT U [id number] SURG A- 3335 [id number] CLINICAL DOCUMENTATION IMPROVEMENT CLARIFICATION FORM: ICD-10 Updated PLEASE DO AN ADDENDUM TO THE PROGRESS NOTE WITH ANY DOCUMENTATION UPDATES OR ADDITIONS AND CARRY THROUGH TO DC SUMMARY. THANK YOU. DATE: 05/18/2018 ATTN: DR. COVARRUBIAS Please exercise your independent, professional judgment in responding to the clarification form. Clinical indicators are provided on the bottom of this form for your review Please check appropriate box(s): [x ] Acute Respiratory Failure: [ x ] with Hypoxia[ ] with Hypercapnia [ ] Acute On Chronic Respiratory Failure: [ ] with Hypoxia [ ] with Hypercapnia [ ] Acute Respiratory Failure due to: (etiology) [ ] Other diagnosis [ ] Unable to determine For continuity of documentation, please document condition throughout progress notes and discharge summary. Thank You. CLINICAL INDICATORS - SIGNS / SYMPTOMS / LABS: *05/12-H&P-PONZIO: SAT 92% ON 2L. *05/13-OHAJU: WAS PLACED ON BIPAP YEST D/T HYPOXEMIC RESP INSUFFICIENCY; THAT DID RESOLVE. EARLY THIS AM, WAS CONFUSED AND FOUND TO BE HYPOXIC WITH SATS 70-80S. *05/14-OHAJU: RESOLVING ACUTE HYPOXEMIC RESPIRATORY INSUFFICIENCY. *05/13@1445: O2 SAT 89% ON 5L NC. *05/14@1900: O2 SAT 91% ON 4L NC. *05/14@1915: O2 SAT 94% ON 6L NC. *05/14@2141: O2 SAT 98% ON BIPAP. *05/13@0115: PO2 56.4. RISK FACTORS: *Recent surgery *Recent falls TREATMENTS: *Oxygen *Monitoring of oxygenation status *Mechanical ventilation / BiPAP *Respiratory treatments *Serial CXR *ABGs *Bronchodilators *CCU Thank you, Tia (This form is maintained as a part of the permanent medical record) 2014 [employer]. All Rights Reserved Tia Rooney RN, CDIS [email or web address] [phone] [facility]
[2018-05-18] MEDS: Atorvastatin Calcium 10 MG TAB PO SCH (21:17)
[2018-05-19] MEDS: Acetaminophen 500 MG TAB PO SCH ×4 (01:58→20:10)
[2018-05-19] MEDS: Insulin Regular 300 UNITS/3 ML VIAL SC PRN ×4 (06:27→20:13)
[2018-05-19] MEDS: Metoprolol Tartrate 25 MG TAB PO SCH ×4 (08:45→20:11)
[2018-05-19] MEDS: Finasteride 5 MG TAB PO SCH (08:46)
[2018-05-19] MEDS: Heparin 5,000 UNITS/ML VIAL SC SCH ×3 (08:46→20:09)
[2018-05-19] MEDS: Amlodipine 5 MG TAB PO SCH ×2 (08:46→20:10)
[2018-05-19] MEDS: Famotidine 20 MG TAB PO SCH ×2 (08:46→20:11)
[2018-05-19] MEDS: Tamsulosin HCl 0.4 MG CAP PO SCH (08:46)
[2018-05-19] MEDS: Polyethylene Glycol 3350 17 GM Packet PO SCH (08:47)
[2018-05-19] MEDS: Insulin Glargine 30 UNITS in Pre-Filled Syringe 1 EACH SC SCH (10:13)
[2018-05-19] MEDS ORDERED: Ibuprofen 600 MG TAB PO SCH (11:00)
[2018-05-19] MEDS ORDERED: Bisacodyl 10 MG SUPP PR PRN (11:32)
[2018-05-19] MEDS: Senokot S 8.6-50 MG TAB PO SCH ×2 (12:11→20:35)
[2018-05-19] MEDS: traMADol HCl 50 MG TAB PO SCH ×2 (12:30→20:12)
[2018-05-19] MEDS: Ibuprofen 200 MG TAB PO SCH ×2 (12:30→20:10)
[2018-05-19] MEDS: Insulin Glargine 15 UNITS in Pre-Filled Syringe 1 EACH SC SCH (15:51)
--- NOTE | 2018-05-19 15:54 | PRG ---
DATE OF SERVICE: 05/19/2018 SUBJECTIVE: This is an 83-year-old gentleman, ground level fall with a right femur fracture. The patient is postop day #7 with an intramedullary nail. The patient had no overnight events. The patient does report not being able to sleep as well last night. Positive productive cough noted. The patient still has not had a bowel movement and the patient's Jung remains in place. OBJECTIVE: VITAL SIGNS: Temperature 97.4, pulse 86, respirations 18, SpO2 of 98% on 2 L nasal cannula, blood pressure 162/76. GENERAL: The patient is awake, alert, sitting up on the side of the bed, working with physical therapy. No distress. HEENT: Head is atraumatic and normocephalic. LUNGS: Clear bilaterally with equal chest rise and fall, no distress. CARDIOVASCULAR: Regular rate and rhythm. ABDOMEN: Soft, moderately distended. The patient is passing gas. EXTREMITIES: Neurovascularly intact x4. DIAGNOSTIC DATA: No diagnostics to review. LABORATORY DATA: Glucose 237. ASSESSMENT: 1. Status post ground level fall. 2. Postoperative day #7, right femur intramedullary nail. 3. Resolving acute respiratory insufficiency with hypoxemia. PLAN: We will continue supportive care. We will adjust the patient's insulin. We will also increase the patient's metoprolol to three times a day. We will make sure the patient receives his Glucerna three times a day. We will increase the patient's bowel regimen with dulcolax. We will leave Jung in place until the patient has a bowel movement. We will place the patient on melatonin to help him sleep. The patient is pending inpatient rehab placement. The patient was examined with Dr. Sandoval during morning rounds. Job ID: [id number]
[2018-05-19] MEDS: Atorvastatin Calcium 10 MG TAB PO SCH (20:11)
[2018-05-19] MEDS: Melatonin 3 MG TAB PO SCH (22:20)
[2018-05-20] MEDS: Acetaminophen 500 MG TAB PO SCH ×5 (02:16→22:27)
[2018-05-20] MEDS: Ibuprofen 200 MG TAB PO SCH ×3 (04:43→22:26)
[2018-05-20] MEDS: traMADol HCl 50 MG TAB PO SCH ×2 (04:43→12:15)
[2018-05-20 05:09] LABS: ALT (SGPT) 46 U/L (8-55); AST (SGOT) 29 U/L (5-34); Albumin 3.2 g/dL (3.4-4.8); Alkaline Phosphatase 62 U/L (40-150); Anion Gap 12 mmol/L (10-20); BUN (Urea Nitrogen) 15 mg/dL (8.4-25.7); Bilirubin, Total 0.7 mg/dL (0.2-1.2); Calc. Creatinine Clearance 113 mL/min (70-130); Calcium 8.6 mg/dL (7.8-10.44); Carbon Dioxide 28 mmol/L (23-31); Chloride 102 mmol/L (98-107); Estimated GFR-MDRD Greater than 90; Globulin 2.3 g/dL (2.4-3.5); Glucose 179 mg/dL (83-110); Potassium 3.7 mmol/L (3.5-5.1); Protein, Total 5.5 g/dL (5.8-8.1); Sodium 138 mmol/L (136-145)
[2018-05-20] MEDS: Insulin Regular 300 UNITS/3 ML VIAL SC PRN ×3 (06:51→22:40)
[2018-05-20] MEDS: Amlodipine 5 MG TAB PO SCH ×2 (08:49→22:28)
[2018-05-20] MEDS: Finasteride 5 MG TAB PO SCH (08:49)
[2018-05-20] MEDS: Famotidine 20 MG TAB PO SCH ×2 (08:49→22:26)
[2018-05-20] MEDS: Heparin 5,000 UNITS/ML VIAL SC SCH ×3 (08:49→22:27)
[2018-05-20] MEDS: Tamsulosin HCl 0.4 MG CAP PO SCH (08:49)
[2018-05-20] MEDS: Insulin Glargine 30 UNITS in Pre-Filled Syringe 1 EACH SC SCH (08:50)
[2018-05-20] MEDS: Metoprolol Tartrate 25 MG TAB PO SCH ×3 (08:50→22:27)
[2018-05-20] MEDS ORDERED: Bisacodyl 10 MG SUPP PR SCH (09:00)
[2018-05-20] MEDS: Senokot S 8.6-50 MG TAB PO SCH ×2 (09:18→22:26)
[2018-05-20] MEDS: Polyethylene Glycol 3350 17 GM Packet PO SCH (09:18)
[2018-05-20] MEDS: traMADol HCl 50 MG TAB PO PRN (09:24)
--- NOTE | 2018-05-20 12:15 | PRG ---
DATE OF SERVICE: 05/20/2018 SUBJECTIVE: This is an 83-year-old gentleman, status post ground level fall with a right femur fracture. The patient is postop day #8, with an intramedullary nail. The patient had no overnight events. The patient also reports being able to sleep very well last night. The patient did have 2 bowel movements yesterday per the nurse. The patient also has been off his oxygen since yesterday afternoon. SpO2 remains at least 93% on room air. The patient has not been requiring any oxygen. OBJECTIVE: VITAL SIGNS: Temperature 97.6, pulse 87, respirations 18, SpO2 of 93% on room air, blood pressure 171/87. GENERAL: The patient is awake, alert, in no distress. HEENT: Head is atraumatic and normocephalic. LUNGS: Clear bilaterally with equal chest rise and fall, no distress. CARDIOVASCULAR: Regular rate and rhythm. ABDOMEN: Soft, moderately distended with active bowel sounds and passing gas. EXTREMITIES: Neurovascularly intact x4. Pedal and radial pulses 2+ bilateral. Right hip dressing is clean, dry, and intact. DIAGNOSTIC DATA: There are no diagnostics to review today. LABORATORY DATA: Sodium 138, potassium 3.7, chloride 102, anion gap 17, CO2 of 28, BUN 15, creatinine 0.74, estimated GFR 90, glucose 179, calcium 8.6, total bilirubin 0.7, AST 29, ALT 46, alkaline phos 62. ASSESSMENT: 1. Status post ground level fall. 2. Postoperative day #8, right femoral intramedullary nail. 3. Acute respiratory insufficiency with hypoxemia, resolved. PLAN: We will continue supportive care and pain regimen. We will discontinue the patient's Jung catheter today as he has been having bowel movements. The patient is pending inpatient rehab placement for insurance authorization. The plan has been discussed with the patient and family. Also, the plan has also been discussed with Dr. Sandoval, who also agrees with the plan. Job ID: [id number]
--- NOTE | 2018-05-20 21:12 | PDOC.EVN ---
Event Note - Event Note Event Note: Nurse paged at [phone]. States patient has been drowsy all day after getting a prn tramadol for pain. Reports this was her first night with him and he seemed to be belly breathing. Arrived to find pt in bed sleeping in no distress. Pt' s daughter at bedside who also states he was less alert during the day, but did play cards with her earlier. Exam reveals mild exp wheezing. Duo nebs scheduled. IS encouraged, which only able to get 500ml. Afebrile, Spo2 95% on RA, reg hear rate. + murmur noted. No pedal edema. Abdomen slightly distended and soft with active BS. Will Change tramadol to Q12H and his 2000 dose was held. Pt reports no pain at this time.
[2018-05-20] MEDS: Atorvastatin Calcium 10 MG TAB PO SCH (22:27)
[2018-05-20] MEDS: Melatonin 3 MG TAB PO SCH (22:36)
[2018-05-21] MEDS: traMADol HCl 50 MG TAB PO SCH ×3 (00:09→20:43)
[2018-05-21] MEDS: Acetaminophen 500 MG TAB PO SCH ×4 (01:29→20:15)
[2018-05-21] MEDS: hydrALAZINE 20 MG/ML VIAL SLOW IVP PRN (01:29)
[2018-05-21] MEDS: Ibuprofen 200 MG TAB PO SCH ×3 (03:36→20:16)
[2018-05-21] MEDS: Metoprolol Tartrate 25 MG TAB PO SCH ×3 (08:35→20:15)
[2018-05-21] MEDS: Amlodipine 5 MG TAB PO SCH ×2 (08:35→20:15)
[2018-05-21] MEDS: Famotidine 20 MG TAB PO SCH ×2 (08:36→20:15)
[2018-05-21] MEDS: Tamsulosin HCl 0.4 MG CAP PO SCH (08:36)
[2018-05-21] MEDS: Finasteride 5 MG TAB PO SCH (08:36)
[2018-05-21] MEDS: Heparin 5,000 UNITS/ML VIAL SC SCH ×3 (08:36→20:16)
[2018-05-21] MEDS: Insulin Glargine 30 UNITS in Pre-Filled Syringe 1 EACH SC SCH (08:37)
[2018-05-21] MEDS: Senokot S 8.6-50 MG TAB PO SCH ×2 (08:50→20:14)
[2018-05-21] MEDS: Polyethylene Glycol 3350 17 GM Packet PO SCH (08:51)
[2018-05-21] MEDS: Insulin Regular 300 UNITS/3 ML VIAL SC PRN ×3 (12:43→20:19)
--- NOTE | 2018-05-21 15:17 | PRG ---
DATE OF SERVICE: 05/21/2018 SUBJECTIVE: This is an 83-year-old gentleman, status post ground level fall with a right femur fracture. The patient is postop day #9 with an intramedullary nail. The patient had no overnight events. The patient reports he did not sleep as well last night just as the night before. The patient reports pain is well controlled and continues to have a good appetite. The patient voices no complaints other than ready to be placed in inpatient rehab. The patient continues to have good urine output. OBJECTIVE: VITAL SIGNS: Temperature 97.6, pulse 65, respirations 18, SpO2 of 94% on room air, and blood pressure 149/82. GENERAL: The patient is awake, alert, in no distress. HEENT: Normocephalic. The patient with healing abrasion to the nose. LUNGS: Clear bilaterally with equal chest rise and fall. No distress. CARDIOVASCULAR: Regular rate and rhythm. Positive murmur noted. ABDOMEN: Soft, slightly distended with active bowel sounds. EXTREMITIES: Neurovascularly intact x4. Pedal pulses 2+ bilateral. Right hip dressing is clean, dry, and intact. ASSESSMENT: 1. Status post ground level fall. 2. Postop day #9 right femoral intramedullary nail. 3. Acute respiratory insufficiency with hypoxemia, resolved. PLAN: We will continue supportive care and pain regimen. We did decrease the patient's tramadol to q.12 hours as he was extremely sleepy yesterday evening. We will also change the patient's insulin to his normal home dose. As his glucose levels have been running high, he remains on regular insulin sliding scale. Pending insurance authorization for inpatient rehab placement. The plan has been discussed with the family and patient who also agreed. The plan has also been discussed with the attending surgeon, Dr. Sandoval, who also agreed with the plan. Job ID: [id number]
[2018-05-21] MEDS: Atorvastatin Calcium 10 MG TAB PO SCH (20:15)
[2018-05-21] MEDS: NPH, Human Insulin Isophane 300 UNIT/3 ML VIAL SC SCH (20:16)
[2018-05-21] MEDS: Melatonin 3 MG TAB PO SCH (20:18)
[2018-05-21] MEDS ORDERED: Amlodipine 5 MG TAB PO SCH (23:45)
[2018-05-22] MEDS: Acetaminophen 500 MG TAB PO SCH ×4 (02:58→20:20)
[2018-05-22] MEDS: Ibuprofen 200 MG TAB PO SCH ×3 (03:07→20:22)
[2018-05-22] MEDS: Heparin 5,000 UNITS/ML VIAL SC SCH ×3 (07:56→20:22)
[2018-05-22] MEDS: Metoprolol Tartrate 25 MG TAB PO SCH (07:57)
[2018-05-22] MEDS: Famotidine 20 MG TAB PO SCH ×2 (07:57→20:19)
[2018-05-22] MEDS: Senokot S 8.6-50 MG TAB PO SCH ×2 (07:58→20:20)
[2018-05-22] MEDS: traMADol HCl 50 MG TAB PO SCH ×2 (07:58→16:39)
[2018-05-22] MEDS: Polyethylene Glycol 3350 17 GM Packet PO SCH (07:58)
[2018-05-22] MEDS: Finasteride 5 MG TAB PO SCH (07:58)
[2018-05-22] MEDS: Tamsulosin HCl 0.4 MG CAP PO SCH (07:59)
[2018-05-22] MEDS ORDERED: Amlodipine 5 MG TAB PO SCH ×4 (09:00)
[2018-05-22] MEDS: NPH, Human Insulin Isophane 300 UNIT/3 ML VIAL SC SCH ×2 (12:33→20:56)
--- NOTE | 2018-05-22 12:55 | PRG ---
DATE OF SERVICE: SUBJECTIVE: This is an 83-year-old gentleman, status post ground level fall with right femur fracture. The patient is postop day #10 with intramedullary nail placement. The patient had no overnight events. The patient and states he did sleep much better last night. The patient continues to have good pain control and continues to have a good appetite. The patient and states no complaints at this time. There are still pending insurance for inpatient rehab. The patient continues to have good urine output. OBJECTIVE: VITAL SIGNS: Temperature 97.4, pulse 73, respirations 18, SpO2 of 95% on room air. Blood pressure 129/79. GENERAL: The patient lying in bed, awake, alert, in no distress. RESPIRATORY: Respirations even nonlabored. Equal chest rise and fall. No distress. CARDIOVASCULAR: Regular rate and rhythm. ABDOMEN: Soft, slightly distended with active bowel sounds. EXTREMITIES: Moves all extremities. NEUROVASCULAR: Intact x4. ASSESSMENT: 1. Status post ground level fall. 2. Postop day #10 right femoral intramedullary nail. 3. Resolved acute respiratory insufficiency with hypoxemia. PLAN: Continue comfort measures and pain regimen. We will increase the patient's metoprolol to 50 b.i.d. as he has been hypertensive. Pending insurance authorization for inpatient rehab. We will continue to encourage the patient to participate with Physical Therapy and Occupational Therapy and to get up from the chair more during the day. The patient was seen with Dr. Sandoval during morning rounds. Plan also discussed with the patient and , who agrees with the plan. is going to attempt to call her insurance company today. Job ID: [id number]
[2018-05-22] MEDS: Insulin Regular 300 UNITS/3 ML VIAL SC PRN (16:43)
[2018-05-22] MEDS: Metoprolol Tartrate 50 MG TAB PO SCH ×2 (17:52→20:19)
[2018-05-22] MEDS: Amlodipine 10 MG TAB PO SCH (20:19)
[2018-05-22] MEDS: Atorvastatin Calcium 10 MG TAB PO SCH (20:20)
[2018-05-22] MEDS: Melatonin 3 MG TAB PO SCH (20:22)
[2018-05-22] MEDS ORDERED: Amlodipine 10 MG TAB PO SCH (21:00)
[2018-05-22] MEDS: traMADol HCl 50 MG TAB PO PRN (23:34)
[2018-05-23] MEDS: Acetaminophen 500 MG TAB PO SCH ×4 (02:25→20:38)
[2018-05-23] MEDS: Ibuprofen 200 MG TAB PO SCH ×3 (04:27→20:44)
[2018-05-23] MEDS: traMADol HCl 50 MG TAB PO SCH (08:28)
[2018-05-23] MEDS: Senokot S 8.6-50 MG TAB PO SCH ×2 (08:31→20:40)
[2018-05-23] MEDS: Polyethylene Glycol 3350 17 GM Packet PO SCH (08:31)
[2018-05-23] MEDS: Metoprolol Tartrate 50 MG TAB PO SCH ×2 (08:32→20:38)
[2018-05-23] MEDS: Heparin 5,000 UNITS/ML VIAL SC SCH ×3 (08:32→20:41)
[2018-05-23] MEDS: Tamsulosin HCl 0.4 MG CAP PO SCH (08:32)
[2018-05-23] MEDS: Finasteride 5 MG TAB PO SCH (08:32)
[2018-05-23] MEDS: NPH, Human Insulin Isophane 300 UNIT/3 ML VIAL SC SCH ×2 (09:48→22:22)
--- NOTE | 2018-05-23 13:16 | PRG ---
DATE OF SERVICE: 05/23/2018 SUBJECTIVE: Mr. Islas was seen this morning lying in bed with his at bedside. She reports that he is doing much better and reports pain is well controlled. does report that when he takes tramadol, he does become more drowsy than usual. He continues to work with Physical Therapy and his appetite is improving. He is still pending insurance for placement at rehab. OBJECTIVE: VITAL SIGNS: Temperature 97.8, pulse 62, respirations 18, oxygen saturation 93% on room air, and blood pressure 159/90. GENERAL: A well-appearing elderly male, lying in bed, awake and alert. No signs of acute distress. RESPIRATORY: Equal chest rise and fall. No signs of acute respiratory distress. Lung sounds clear bilaterally. CARDIOVASCULAR: Regular rate and rhythm. No murmurs, gallops, or rubs. ABDOMEN: Soft, slightly distended and nontender, has positive active bowel sounds. EXTREMITIES: Moves all extremities spontaneously. Pulses present in all 4 extremities. Gross motor and sensation is intact. NEUROLOGIC: GCS is 15. Gross motor and sensation intact. Pupils equal, round, and reactive to light. ASSESSMENT: 1. Status post ground level fall. 2. Right femoral fracture, status post intramedullary nail. 3. Acute respiratory insufficiency with hypoxemia, resolved. 4. History of coronary artery disease, dementia, murmur, diabetes, hyperlipidemia, and cardiac stents. PLAN: We will continue to provide supportive care with Physical and Occupational Therapy. We will continue current pain regimen as well as diet. Yesterday, metoprolol and the patient's home insulin were increased. We will continue to monitor those and adjust as needed tomorrow. We will obtain an a.m. chemistry. We will also decrease his tramadol from scheduled to p.r.n. as it is making him drowsy. We are pending placement at an acute rehab facility and are waiting for insurance approval. The patient is ready for discharge. The patient was seen and examined by Dr. Thurman this morning during rounds. Job ID: [id number]
[2018-05-23] MEDS: Insulin Regular 300 UNITS/3 ML VIAL SC PRN (16:36)
[2018-05-23] MEDS: Atorvastatin Calcium 10 MG TAB PO SCH (20:39)
[2018-05-23] MEDS: Amlodipine 10 MG TAB PO SCH (20:39)
[2018-05-23] MEDS: Melatonin 3 MG TAB PO SCH (20:40)
[2018-05-24] MEDS: Acetaminophen 500 MG TAB PO SCH ×3 (01:27→14:06)
[2018-05-24] MEDS: Ibuprofen 200 MG TAB PO SCH ×3 (04:47→11:50)
[2018-05-24 04:48] VITALS: TEMP 97.5
[2018-05-24] MEDS: traMADol HCl 50 MG TAB PO PRN (05:24)
[2018-05-24 07:31] LABS: Anion Gap 10 mmol/L (10-20); BUN (Urea Nitrogen) 12 mg/dL (8.4-25.7); Calc. Creatinine Clearance 131 mL/min (70-130); Carbon Dioxide 27 mmol/L (23-31); Chloride 106 mmol/L (98-107); Estimated GFR-MDRD Greater than 90; Glucose 101 mg/dL (83-110); Magnesium 1.9 mg/dL (1.6-2.6); Phosphorus 3.7 mg/dL (2.3-4.7); Potassium 3.9 mmol/L (3.5-5.1); Sodium 139 mmol/L (136-145)
[2018-05-24] MEDS: NPH, Human Insulin Isophane 300 UNIT/3 ML VIAL SC SCH (09:04)
[2018-05-24] MEDS: Senokot S 8.6-50 MG TAB PO SCH (09:05)
[2018-05-24] MEDS: Heparin 5,000 UNITS/ML VIAL SC SCH ×2 (09:05→14:07)
[2018-05-24] MEDS: Finasteride 5 MG TAB PO SCH (09:06)
[2018-05-24] MEDS: Tamsulosin HCl 0.4 MG CAP PO SCH (09:06)
[2018-05-24] MEDS: Polyethylene Glycol 3350 17 GM Packet PO SCH (09:06)
[2018-05-24] MEDS: Metoprolol Tartrate 50 MG TAB PO SCH (09:06)
[2018-05-24] MEDS ORDERED: Lisinopril 10 MG TAB PO SCH ×2 (09:45→10:15)
[2018-05-24] MEDS: Insulin Regular 300 UNITS/3 ML VIAL SC PRN ×2 (11:49→16:30)
[2018-05-24] MEDS ORDERED: Gabapentin 100 MG CAP PO SCH (15:00)
[2018-05-24 16:37] VITALS: BP 137/74
--- NOTE | 2018-05-24 17:18 | DIS ---
DATE OF ADMISSION: 05/12/2018 DATE OF DISCHARGE: 05/24/2018 ADMISSION DIAGNOSES: 1. Status post ground level fall. 2. Right femoral neck fracture. 3. Leukocytosis. 4. Superficial soft tissue infection of the nasal bridge. 5. Abdominal pain and distention. 6. Acute kidney injury. 7. Delirium. 8. Respiratory distress. DISCHARGE DIAGNOSES: 1. Status post mechanical ground level fall. 2. Right femoral neck fracture, resolved. 3. Acute kidney injury, resolved. 4. Respiratory distress, resolved. 5. Superficial soft tissue wound infection of nasal bridge, resolved. CONSULTING PHYSICIAN: Dr. Owen, Orthopedic Surgery. PROCEDURES: Intramedullary nail of the right femur on 05/12. HOSPITAL COURSE: Mr. Islas is an 83-year-old male patient, who fell off the side of a curb. It was a mechanical fall with no loss of consciousness. He was subsequently taken to the emergency department and was found to have a right femoral neck fracture, also concerning for a leukocytosis, abdominal pain and distention as well as a superficial skin infection at the nasal bridge, which he was previously getting treatment for. The patient had a syncope workup, which was negative before going to the OR. He also received a right upper quadrant abdominal ultrasound for concern for acute cholecystitis, which ruled out any acute cholecystitis. The patient was taken to the OR by Dr. Owen on 05/12. He received IM nail of the right femur. Postoperatively, Anesthesia had difficulty extubating the patient and ultimately put the patient on BiPAP. He was then taken to the IMCU and received BiPAP at night. At this point, he also had concern for delirium as well. Over the next couple of days, the patient's delirium improved and he was able to tolerate the BiPAP at night. He was then subsequently transferred to the floor, where he had an event with a change in mentation. He was worked up and received blood draws, EKG, and blood gas. He was also on BiPAP at that time. He was ultimately received a CT scan of the brain to rule out a stroke. CT scan was negative. He was also worked up for seizure and that was negative as well. He was transferred to the ICU for closer monitoring. After a couple of hours of receiving supportive care with BiPAP, the patient spontaneously awoke and was communicating at his baseline with his family and the care team. So, he was ultimately diagnosed with a fat emboli, which he recovered from. A few days later, he was transferred back to the floor. He started to develop increased hypertension. His home amlodipine was increased to 10 mg at night, metoprolol was increased from 25 to 50 b.i.d. He also had issues off and on with urinary retention and did have a Jung for some period of time and ultimately that was discontinued and he was able to void on his own. He also had abdominal distention and had an ileus, but ultimately he did have a bowel movement and was having those regularly before discharge. On the day of discharge, the patient was still hypertensive and was started on lisinopril 10 mg a day. Gabapentin was also started to help with nerve pain at the site of his right femoral neck fracture. He was discharged to an acute rehab facility, in which were instructed to continue physical and occupational therapy as well as continue to adjust the patient's hypertensive medications as indicated. DISCHARGE DISPOSITION: Acute rehab. DISCHARGE CONDITION: Satisfactory. PHYSICAL EXAMINATION: VITAL SIGNS: Temperature was 97.5, pulse 64, respirations 18, oxygen saturation 93% on room air, blood pressure 151/89. GENERAL: Well-appearing elderly male, sitting up in bed, alert and awake, mentation at baseline. No signs of acute distress. RESPIRATORY: Equal chest rise and fall. No signs of acute respiratory distress. Lung perales are clear bilaterally. CARDIOVASCULAR: Regular rate and rhythm. No murmurs, gallops, or rubs. ABDOMEN: Soft, slightly distended, and nontender with positive bowel sounds. EXTREMITIES: Moves all extremities spontaneously. Gross motor and sensation are intact. Pulses present in all 4 extremities. NEURO: GCS is 15. Gross motor and sensation are intact. Pupils are equal, round, reactive to light. DISCHARGE INSTRUCTIONS: The patient will be discharged to an acute rehab facility, where he received occupational and physical therapy. He is to follow up with Orthopedic Surgery in 2 weeks. He can follow up with Dr. Sandoval, Trauma Surgery as needed. Activities as tolerated with weightbearing as tolerated. He is going to be on a diabetic diet with Glucerna b.i.d. He is to use incentive spirometry and a walker. Physician at the acute rehab facility to continue to adjust hypertensive medications as indicated. DISCHARGE MEDICATIONS: Include; 1. Acetaminophen. 2. Amlodipine. 3. Gabapentin. 4. Heparin. 5. Ibuprofen. 6. Lisinopril. 7. Melatonin. 8. Metoprolol. 9. MiraLAX. 10. Senokot. 11. Tramadol. 12. Metformin. 13. Flomax. 14. Pravastatin. 15. Proscar. 16. Vitamin D3. 17. Novolin. FOLLOWUP APPOINTMENTS: The patient is to follow up with Orthopedic Surgery in 14 days. No followup indicated with Trauma Surgery. This is merely a summary of the patient's hospitalization. For full details, please see his medical record in its entirety. Job ID: [id number]
[2018-05-25] MEDS ORDERED: Lisinopril 10 MG TAB PO SCH (09:00)
--- NOTE | 2018-05-27 01:03 | EKG ---
Test Reason : STAT Blood Pressure : / mmHG Vent. Rate : 082 BPM Atrial Rate : 082 BPM P-R Int : 152 ms QRS Dur : 096 ms QT Int : 358 ms P-R-T Axes : -06 -73 015 degrees QTc Int : 418 ms Normal sinus rhythm Left axis deviation Possible Anterior infarct (cited on or before 12-MAY-2018) Abnormal ECG When compared with ECG of 12-MAY-2018 01:26, (Unconfirmed) Premature atrial complexes are no longer Present Criteria for Inferior infarct are no longer Present Confirmed by MICHAEL HERRON M.D. ([id number] on 05/27/2018 1:02:38 AM Referred By: [email or web address] Confirmed By:MICHAEL HERRON M.D.
--- NOTE | 2018-05-27 14:05 | EKG ---
Test Reason : Blood Pressure : / mmHG Vent. Rate : 087 BPM Atrial Rate : 087 BPM P-R Int : 158 ms QRS Dur : 092 ms QT Int : 362 ms P-R-T Axes : 000 -86 039 degrees QTc Int : 435 ms Sinus rhythm with Premature atrial complexes Left axis deviation Incomplete right bundle branch block Inferior infarct , age undetermined Anterior infarct , age undetermined Abnormal ECG Confirmed by JENI Green, ALEJANDRINA ([id number]), editor department LIS NYE ([id number]) on 05/27/2018 2:04:35 PM Referred By: Confirmed By:ALEJANDRINA NGO M.D.
== END 2018-05-24 19:00 | DRG 956 ==
LOC: ERS 01:13 → SURG A 04:48 → IMCU/EMU 15:28 → SURG A 05-14 12:37 → CCU 05-14 23:04 → IMCU/EMU 05-15 18:40 → SURG A 05-18 19:58
PROVIDERS: ADMIT Surgery; ATTEND Surgery
PROC: 0QS636Z Reposition Right Upper Femur with Intramedullary Internal Fixation Device, Percutaneous Approach (ICD-10-PCS; principal; 2018-05-12)
PROC: 5A09357 Assistance with Respiratory Ventilation, Less than 24 Consecutive Hours, Continuous Positive Airway Pressure (ICD-10-PCS; 2018-05-13)
DX: S72.21XA Displaced subtrochanteric fracture of right femur, initial encounter for closed fracture (principal); T79.1XXA Fat embolism (traumatic), initial encounter; G93.41 Metabolic encephalopathy; J96.01 Acute respiratory failure with hypoxia; D62 Acute posthemorrhagic anemia; N17.9 Acute kidney failure, unspecified; I25.10 Atherosclerotic heart disease of native coronary artery without angina pectoris; E11.9 Type 2 diabetes mellitus without complications; E78.5 Hyperlipidemia, unspecified; G89.29 Other chronic pain; M54.9 Dorsalgia, unspecified; M79.89 Other specified soft tissue disorders; R33.9 Retention of urine, unspecified; E83.42 Hypomagnesemia; E87.6 Hypokalemia; E83.39 Other disorders of phosphorus metabolism; Z91.81 History of falling; Z79.4 Long term (current) use of insulin; Z79.899 Other long term (current) drug therapy; Z95.5 Presence of coronary angioplasty implant and graft; W01.0XXA Fall on same level from slipping, tripping and stumbling without subsequent striking against object, initial encounter; X58.XXXA Exposure to other specified factors, initial encounter
CPT/HCPCS: 36415; 36416; 70450; 71045; 72125; 74018; 76000; 76705; 80048; 80053; 81001; 82553; 82805; 83605; 83735; 83880; 84100; 84146; 84443; 84484; 85025; 86850; 86900; 86901; 87040; 87086; 90471; 90715; 93005; 93010; 94640; 96361; 96365; 96375; C1713; C1769; J0131; J0360; J1120; J1642; J1644; J1815; J1825; J1885; J1940; J2001; J2270; J2405; J2543; J2704; J2710; J3010; J3370; J3475; J3490; J7050; J7620; Q0162; S0028